=== PATIENT | female | born 2005 | race Hispanic/Latino ===

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

== ENCOUNTER 2024-04-28 12:26 | Emergency (ER) | payer SELFPAY ==
--- OUTSIDE RECORDS SUMMARY | 2024-04-28 12:30 | XMS REPORT | Continuity of Care Document ---
Author Name Unknown Address [address] [facility] [address] [place] [address] [facility] Address [address] [facility] [place] [address] Care Team Providers Care Workers Compensation Claims Adjuster Name Role Phone PCP, PATIENT DOES NOT HAVE A Primary Care Physic pinky Unavailable JOE SHELLEY Attending Clinician UnavailJOE Phillips Attending Clinician UnavailLing Landaverde Attending Clinician Unavailable Ling Steele Attending Clinician [phone] Patria Belcher Attending Clinician [phone] Unknown, Attending Attending Clinician Unavailab PATRIA Chauhan Attending Clinician Unavailable Doctor Unassigned, [place] Attending Clinician U Christianne Spivey MD Attending Clinician [phone] CHRISTIANNE YEH Attending Clinician Unavailable CHAYA MISTRY Attending Clinician UnavailChaya Montano Attending Clinician [phone] Nuria Naylor MD Attending Clinician [phone] NURIA NAYLOR Attending Clinician UnavailSTEPHEN Billings Attending Clinician Unavailable Nurse, [facility] Attending Clinician Un available Stephen Diallo MD Attending Clinician [phone] SINDHU ROBBINS Attending Clinician Unavailable PATRICK CELIS Attending Clinician Unavailable 2, [facility] Attending Clinician Unavailable Maria Eugenia Washington Attending Clinician [phone] TERE CLINTON Attending Clinician Unavailable Tere Clinton PA-C Attending Clinician [phone] Sindhu Robbins MD Attending Clinician [phone] Diabetes, [place] [facility] Endocrine Attending Cli evert Unavailable Qasim Amaya MD Attending Clinician [phone] QASIM AMAYA Attending Clinician Unavailable [facility] [phone] Only, [facility] Pednevin Bill Attending Clinician Unavaila Magy Naik Attending Clinician [phone] Gigi Ramos PA-C Attending Clinician [phone] MARIA EUGENIA IZQUIERDO Attending Clinician Unavailable Lucille Majano Attending Clinician [phone] JYOTI RAE Attending Clinician Unavailable Jyoti East Attending Clinician [phone] Judy Perdomo MD Attending Clinician [phone] Doyle Hamm Attending Clinician [phone] Ellen Baxter MD Attending Clinician [phone] Pob, [facility] Main Attending Clinician Unavailjosemanuel Miguel_P Attending Clinician Unavailable JUDY PERDOMO Attending Clinician Unavailable Visit, [facility] Nurse Attending Clinician Unavailable Blanca Castillo DO Attending Clinician [phone] Adelia Zarco MD Attending Clinician [phone] ELLEN BAXTER Attending Clinician Unavailable Ling BOYLE Admitting Clinician Unavailable Lamont_Scott Admitting Clinician Unavailable Payers Payer Name Policy Type Policy Number Effective Date Expirati on Date Source [facility] MEDICAID [id number] 2013 00:00:00 [facility] (MEDICAID REPLACEMENT - HMO) [id number] 2018 00:00:00 Problems Condition Name Condition Details Condition Category Status Onset Date Resolution Date Last Treatment Date Treating Clinician Comments Source Type 2 diabetes mellitus with other specified complicati on, without long-term current use of insulin Type 2 diabetes mellitus with other specified complicati on, without long-term current use of insulin Disease Active 2020-07 00:00: 00 [facility] Hypertrigl yceridemia without hyperchole sterolemia Hypertrigl yceridemia without hyperchole sterolemia Disease Active 2020-07 00:00: 00 [facility] Elevated liver function tests Elevated liver function tests Disease Active 2020-07 00:00: 00 [facility] Class 3 severe obesity with body mass index (BMI) of 45.0 to 49.9 in adult, unspecifie d obesity type, unspecifie d whether serious comorbidit y present Class 3 severe obesity with body mass index (BMI) of 45.0 to 49.9 in adult, unspecifie d obesity type, unspecifie d whether serious comorbidit y present Disease Active 2020-07 00:00: 00 Last Assessmen t & Plan: Formattin g of this note might be different from the original. Plan:Nutr itional/E xercise Counselin g and Education : - Counseled on diet, exercise, weight control and goals Ordered labs to screen for comorbidi ties.Disc ussed 5210 Every Day!5 or more fruits and vegetable s2 hours or less recreatio nal screen time. *Keep TV/Comput er out of the bedroom. No screen time under the age of 2.1 hour or more of physical activity0 sugary drinks, more water and low fat milk [facility] Elevated blood pressure reading Elevated blood pressure reading Disease Active 2020-07 00:00: 00 Last Assessmen t & Plan: Formattin g of this note might be different from the original. Mother states that they have a home blood pressure machine.S he will take some BP readings and will follow up in 2 weeks. [facility] Assistance needed with transporta tion Assistance needed with transporta tion Disease Active 2020-07 00:00: 00 Last Assessmen t & Plan: Formattin g of this note might be different from the original. Uncovered barriers to specialty appointme nts - lack of reliable transport ation.Ref erral to social work to assist. [facility] Musculoske letal back pain - left flank Musculoske letal back pain - left flank Disease Active 8-14 00:00: 00 Last Assessmen t & Plan: Formattin g of this note might be different from the original. 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 She has been off pain relieving medicatio ns for the past week. She has not been physicall y active and has been resting. She still has some mild pain with lateral flexion of the back. Normal neurologi c exam.Plan :Gave release for her to return to work.[employer] uraged her to resume activity slowly.Sh e did report that her boss is supportin g this plan.Revi ewed the importanc e of doing regular slow stretches of the back muscles. Before and after exercisin g or her shifts at work.Noti fy if the pain worsens. [facility] New onset of type 2 diabetes mellitus in pediatric patient New onset of type 2 diabetes mellitus in pediatric patient Disease Active 2-11 00:00: 00 Overview: Formattin g of this note might be different from the original. Hospital admission - [facility], 07/16 to 07/17/2020, started on insulinLa Assessmen t & Plan: Formattin g of this note might be different from the original. [facility] referral placed for Endocrino logy.Fadia ent is non compliant and her diabetes is not under good control. She had been treated with metformin but does not like taking pills - will not take the medicatio n.Needs to re-connec t with endocrino logy to get her diabetes under better control.L abs ordered. [facility] Elevated hemoglobin A1c Elevated hemoglobin A1c Disease Active 02-28 00:00: 00 [facility] Acanthosis nigricans Acanthosis nigricans Disease Active 04-04 00:00: 00 [facility] Anxiety Anxiety Disease Active 04-02 00:00: 00 [facility] Allergic rhinitis, unspecifie d seasonalit y, unspecifie d trigger Allergic rhinitis, unspecifie d seasonalit y, unspecifie d trigger Disease Active 04-02 00:00: 00 Last Assessmen t & Plan: Formattin g of this note might be different from the original. Recommend ed Flonase regularly for control of allergies . She does not want to take pills. [facility] Depression , unspecifie d depression type Depression , unspecifie d depression type Disease Active 04-02 00:00: 00 [facility] Failed vision screen Failed vision screen Disease Active 04-02 00:00: 00 [facility] Chlamydia Chlamydia Disease Active 04-02 00:00: 00 [facility] SSRI overdose, intentiona l self-harm, initial encounter SSRI overdose, intentiona l self-harm, initial encounter Disease Active 12-16 00:00: 00 Overview: Formattin g of this note might be different from the original. 06/2019: At age 11 yr. Doing better now. [facility] Allergies, Adverse Reactions, Alerts Allergy Name Allergy Type Status Severity Reaction(s) Onset Date Inactive Date Treating Clinician Comments Source NO KNOWN ALLERGIE S Drug Class Active [facility] Social History Social Habit Start Date Stop Date Quantity Comments Source History SDOH Alcohol Std Drinks [facility] History SDOH Alcohol Binge [facility] History SDOH Alcohol Comment [place] [facility] intake 2023-07-04 00:00:00 2023-07-04 00:00:00 Lifetime non-drinker (finding) [facility] Exposure to SARS-CoV-2 (event) 2022-09-13 00:00:00 2022-09-23 17:36:00 Not sure [facility] Tobacco use and exposure 2021-04-19 00:00:00 2021-04-19 00:00:00 Smokeless tobacco non-user [facility] History of Social function 2021-04-01 00:00:00 2021-04-01 00:00:00 [facility] History SDOH Alcohol Frequency 2019-03-08 00:00:00 2019-03-08 00:00:00 1 [facility] Sex Assigned At 2005 00:00:00 2005 00:00:00 [facility] Smoking Status Start Date Stop Date Source Never smoked tobacco [facility] Medications Ordered Medication Name Filled Medication Name Start Date Stop Date Current Medication? Ordering Clinician Indication Dosage Frequency Signature (SIG) Comments Components Source ibuprofen (IBU) tablet 600 mg 2022-07 06:00: 00 07-05 06:13 :00 No 600mg 600 mg, Oral, ONCE, 1 dose, On Tue07/05/23 at 0000, [facility] ibuprofen 600 mg tablet 2022-07 00:00: 00 Yes [id number] 600mg Take 1 tablet by mouth every 6 (six) hours as needed for Pain (scale 4-6). [facility] bromphenira mine-pseudo ephedrine-D M (BROMFED DM) 2-30-10 mg/5 mL syrup 2021-07 00:00: 00 Yes [id number] 5mL Take 5 mL by mouth 4 (four) times daily as needed for Congestion /Allergies . [facility] medroxyPROG ESTERone (DEPO-PROVE RA) syringe 150 mg 08-27 18:15: 00 08-27 17:11 :00 No [id number] 150[facility] ketoconazol e 2 % cream 2020-07 00:00: 00 Yes [id number] Apply to area(s) daily. [facility] Blood-Gluco se Meter (FREESTYLE LITE METER) Kit 2020-07 00:00: 00 Yes [id number] Use as directed [facility] blood sugar diagnostic (FREESTYLE LITE STRIPS) strip 2020-07 00:00: 00 Yes [id number] Check 3 times daily [facility] lancets (FREESTYLE LANCETS) 28 gauge Misc 2020-07 00:00: 00 Yes [id number] Checking sugars 3 times daily [facility] metFORMIN (RIOMET) 500 mg/5 mL solution 2020-07 00:00: 00 Yes [id number] 1000mg Take 10 mL by mouth 2 (two) times daily with meals. [facility] Blood-Gluco se Meter (FREESTYLE LITE METER) Kit 2020-07 00:00: 00 Yes [id number] Use as directed [facility] blood sugar diagnostic (FREESTYLE LITE STRIPS) strip 2020-07 00:00: 00 Yes [id number] Check 3 times daily [facility] fluticasone propionate 50 mcg/actuati on nasal spray,suspe nsion [place] 1 spray every day by intranasal route for 30 days. fluticasone propionate 50 mcg/actuati on nasal spray,suspe nsion [place] 1 spray every day by intranasal route for 30 days. No 1spray( s) Q1D fluticason e propionate 50 mcg/actuat ion nasal spray,susp ension [place] 1 spray every day by intranasal route for 30 days. [facility] Immunizations Ordered Immunization Name Filled Immunization Name Date Status Comments Source Meningococcal Polysaccharide (groups A, C, Y and W-135) conjugate vaccine (MCV4P) 2021-04-01 00:00:00 Completed [facility] Meningococcal B, OMV 2021-04-01 00:00:00 Completed [facility] Meningococcal Polysaccharide (groups A, C, Y and W-135) conjugate vaccine (MCV4P) 2021-04-01 00:00:00 Completed [facility] Meningococcal B, OMV 2021-04-01 00:00:00 Completed [facility] Meningococcal Polysaccharide (groups A, C, Y and W-135) conjugate vaccine (MCV4P) 2021-04-01 00:00:00 Completed [facility] Meningococcal B, OMV 2021-04-01 00:00:00 Completed [facility] Meningococcal Polysaccharide (groups A, C, Y and W-135) conjugate vaccine (MCV4P) 2021-04-01 00:00:00 Completed [facility] Meningococcal B, OMV 2021-04-01 00:00:00 Completed [facility] Meningococcal Polysaccharide (groups A, C, Y and W-135) conjugate vaccine (MCV4P) 2021-04-01 00:00:00 Completed [facility] Meningococcal B, OMV 2021-04-01 00:00:00 Completed [facility] Meningococcal Polysaccharide (groups A, C, Y and W-135) conjugate vaccine (MCV4P) 2021-04-01 00:00:00 Completed [facility] Meningococcal B, OMV 2021-04-01 00:00:00 Completed [facility] Meningococcal Polysaccharide (groups A, C, Y and W-135) conjugate vaccine (MCV4P) 2021-04-01 00:00:00 Completed [facility] Meningococcal B, OMV 2021-04-01 00:00:00 Completed [facility] Meningococcal Polysaccharide (groups A, C, Y and W-135) conjugate vaccine (MCV4P) 2021-04-01 00:00:00 Completed [facility] Meningococcal B, OMV 2021-04-01 00:00:00 Completed [facility] Meningococcal Polysaccharide (groups A, C, Y and W-135) conjugate vaccine (MCV4P) 2021-04-01 00:00:00 Completed [facility] Meningococcal B, OMV 2021-04-01 00:00:00 Completed [facility] Meningococcal Polysaccharide (groups A, C, Y and W-135) conjugate vaccine (MCV4P) 2021-04-01 00:00:00 Completed [facility] Meningococcal B, OMV 2021-04-01 00:00:00 Completed [facility] Meningococcal Polysaccharide (groups A, C, Y and W-135) conjugate vaccine (MCV4P) 2021-04-01 00:00:00 Completed [facility] Meningococcal B, OMV 2021-04-01 00:00:00 Completed [facility] Meningococcal Polysaccharide (groups A, C, Y and W-135) conjugate vaccine (MCV4P) 2021-04-01 00:00:00 Completed [facility] Meningococcal B, OMV 2021-04-01 00:00:00 Completed [facility] Influenza Virus Vaccine Quad .5 mL IM 6+ MO 2020-06-23 00:00:00 Completed [facility] Influenza Virus Vaccine Quad .5 mL IM 6+ MO 2020-06-23 00:00:00 Completed [facility] Influenza Virus Vaccine Quad .5 mL IM 6+ MO 2020-06-23 00:00:00 Completed [facility] Influenza Virus Vaccine Quad .5 mL IM 6+ MO 2020-06-23 00:00:00 Completed [facility] Influenza Virus Vaccine Quad .5 mL IM 6+ MO 2020-06-23 00:00:00 Completed [facility] Influenza Virus Vaccine Quad .5 mL IM 6+ MO 2020-06-23 00:00:00 Completed [facility] Influenza Virus Vaccine Quad .5 mL IM 6+ MO 2020-06-23 00:00:00 Completed [facility] Influenza Virus Vaccine Quad .5 mL IM 6+ MO 2020-06-23 00:00:00 Completed [facility] Influenza Virus Vaccine Quad .5 mL IM 6+ MO 2020-06-23 00:00:00 Completed [facility] Influenza Virus Vaccine Quad .5 mL IM 6+ MO 2020-06-23 00:00:00 Completed [facility] Influenza Virus Vaccine Quad .5 mL IM 6+ MO 2020-06-23 00:00:00 Completed [facility] Influenza Virus Vaccine Quad .5 mL IM 6+ MO 2020-06-23 00:00:00 Completed [facility] HPV9 2019-07-02 00:00:00 Completed [facility] HPV9 2019-07-02 00:00:00 Completed [facility] HPV9 2019-07-02 00:00:00 Completed [facility] HPV9 2019-07-02 00:00:00 Completed [facility] HPV9 2019-07-02 00:00:00 Completed [facility] HPV9 2019-07-02 00:00:00 Completed [facility] HPV9 2019-07-02 00:00:00 Completed [facility] HPV9 2019-07-02 00:00:00 Completed [facility] HPV9 2019-07-02 00:00:00 Completed [facility] HPV9 2019-07-02 00:00:00 Completed [facility] HPV9 2019-07-02 00:00:00 Completed [facility] HPV9 2019-07-02 00:00:00 Completed [facility] Meningococcal Polysaccharide (groups A, C, Y and W-135) conjugate vaccine (MCV4P) 2019-04-02 00:00:00 Completed [facility] TDAP 2019-04-02 00:00:00 Completed [facility] HPV9 2019-04-02 00:00:00 Completed [facility] Meningococcal Polysaccharide (groups A, C, Y and W-135) conjugate vaccine (MCV4P) 2019-04-02 00:00:00 Completed [facility] TDAP 2019-04-02 00:00:00 Completed [facility] HPV9 2019-04-02 00:00:00 Completed [facility] Meningococcal Polysaccharide (groups A, C, Y and W-135) conjugate vaccine (MCV4P) 2019-04-02 00:00:00 Completed [facility] TDAP 2019-04-02 00:00:00 Completed [facility] HPV9 2019-04-02 00:00:00 Completed [facility] Meningococcal Polysaccharide (groups A, C, Y and W-135) conjugate vaccine (MCV4P) 2019-04-02 00:00:00 Completed [facility] TDAP 2019-04-02 00:00:00 Completed [facility] HPV9 2019-04-02 00:00:00 Completed [facility] Meningococcal Polysaccharide (groups A, C, Y and W-135) conjugate vaccine (MCV4P) 2019-04-02 00:00:00 Completed [facility] TDAP 2019-04-02 00:00:00 Completed [facility] HPV9 2019-04-02 00:00:00 Completed [facility] Meningococcal Polysaccharide (groups A, C, Y and W-135) conjugate vaccine (MCV4P) 2019-04-02 00:00:00 Completed [facility] TDAP 2019-04-02 00:00:00 Completed [facility] HPV9 2019-04-02 00:00:00 Completed [facility] Meningococcal Polysaccharide (groups A, C, Y and W-135) conjugate vaccine (MCV4P) 2019-04-02 00:00:00 Completed [facility] TDAP 2019-04-02 00:00:00 Completed [facility] HPV9 2019-04-02 00:00:00 Completed [facility] Meningococcal Polysaccharide (groups A, C, Y and W-135) conjugate vaccine (MCV4P) 2019-04-02 00:00:00 Completed [facility] TDAP 2019-04-02 00:00:00 Completed [facility] HPV9 2019-04-02 00:00:00 Completed [facility] Meningococcal Polysaccharide (groups A, C, Y and W-135) conjugate vaccine (MCV4P) 2019-04-02 00:00:00 Completed [facility] TDAP 2019-04-02 00:00:00 Completed [facility] HPV9 2019-04-02 00:00:00 Completed [facility] Meningococcal Polysaccharide (groups A, C, Y and W-135) conjugate vaccine (MCV4P) 2019-04-02 00:00:00 Completed [facility] TDAP 2019-04-02 00:00:00 Completed [facility] HPV9 2019-04-02 00:00:00 Completed [facility] Meningococcal Polysaccharide (groups A, C, Y and W-135) conjugate vaccine (MCV4P) 2019-04-02 00:00:00 Completed [facility] TDAP 2019-04-02 00:00:00 Completed [facility] HPV9 2019-04-02 00:00:00 Completed [facility] Meningococcal Polysaccharide (groups A, C, Y and W-135) conjugate vaccine (MCV4P) 2019-04-02 00:00:00 Completed [facility] TDAP 2019-04-02 00:00:00 Completed [facility] HPV9 2019-04-02 00:00:00 Completed [facility] Influenza Virus Vaccine Quad IM 3+ YRS 2017-04-12 00:00:00 Completed [facility] Influenza Virus Vaccine Quad IM 3+ YRS 2017-04-12 00:00:00 Completed [facility] Influenza Virus Vaccine Quad IM 3+ YRS 2017-04-12 00:00:00 Completed [facility] Influenza Virus Vaccine Quad IM 3+ YRS 2017-04-12 00:00:00 Completed [facility] Influenza Virus Vaccine Quad IM 3+ YRS 2017-04-12 00:00:00 Completed [facility] Influenza Virus Vaccine Quad IM 3+ YRS 2017-04-12 00:00:00 Completed [facility] Influenza Virus Vaccine Quad IM 3+ YRS 2017-04-12 00:00:00 Completed [facility] Influenza Virus Vaccine Quad IM 3+ YRS 2017-04-12 00:00:00 Completed [facility] Influenza Virus Vaccine Quad IM 3+ YRS 2017-04-12 00:00:00 Completed [facility] Influenza Virus Vaccine Quad IM 3+ YRS 2017-04-12 00:00:00 Completed [facility] Influenza Virus Vaccine Quad IM 3+ YRS 2017-04-12 00:00:00 Completed [facility] Influenza Virus Vaccine Quad IM 3+ YRS 2017-04-12 00:00:00 Completed [facility] HPV9 2017-02-17 00:00:00 Completed [facility] HPV9 2017-02-17 00:00:00 Completed [facility] HPV9 2017-02-17 00:00:00 Completed [facility] HPV9 2017-02-17 00:00:00 Completed [facility] HPV9 2017-02-17 00:00:00 Completed [facility] HPV9 2017-02-17 00:00:00 Completed [facility] HPV9 2017-02-17 00:00:00 Completed [facility] HPV9 2017-02-17 00:00:00 Completed [facility] HPV9 2017-02-17 00:00:00 Completed [facility] HPV9 2017-02-17 00:00:00 Completed [facility] HPV9 2017-02-17 00:00:00 Completed [facility] HPV9 2017-02-17 00:00:00 Completed [facility] HPV9 2016-05-03 00:00:00 Completed [facility] Influenza Virus Vaccine Quad IM Multi-dose 6+ MO 2016-05-03 00:00:00 Completed [facility] Meningococcal Polysaccharide (groups A, C, Y and W-135) conjugate vaccine (MCV4P) 2016-05-03 00:00:00 Completed [facility] TDAP 2016-05-03 00:00:00 Completed [facility] HPV9 2016-05-03 00:00:00 Completed [facility] Influenza Virus Vaccine Quad IM Multi-dose 6+ MO 2016-05-03 00:00:00 Completed [facility] Meningococcal Polysaccharide (groups A, C, Y and W-135) conjugate vaccine (MCV4P) 2016-05-03 00:00:00 Completed [facility] TDAP 2016-05-03 00:00:00 Completed [facility] HPV9 2016-05-03 00:00:00 Completed [facility] Influenza Virus Vaccine Quad IM Multi-dose 6+ MO 2016-05-03 00:00:00 Completed [facility] Meningococcal Polysaccharide (groups A, C, Y and W-135) conjugate vaccine (MCV4P) 2016-05-03 00:00:00 Completed [facility] TDAP 2016-05-03 00:00:00 Completed [facility] HPV9 2016-05-03 00:00:00 Completed [facility] Influenza Virus Vaccine Quad IM Multi-dose 6+ MO 2016-05-03 00:00:00 Completed [facility] Meningococcal Polysaccharide (groups A, C, Y and W-135) conjugate vaccine (MCV4P) 2016-05-03 00:00:00 Completed [facility] TDAP 2016-05-03 00:00:00 Completed [facility] HPV9 2016-05-03 00:00:00 Completed [facility] Influenza Virus Vaccine Quad IM Multi-dose 6+ MO 2016-05-03 00:00:00 Completed [facility] Meningococcal Polysaccharide (groups A, C, Y and W-135) conjugate vaccine (MCV4P) 2016-05-03 00:00:00 Completed [facility] TDAP 2016-05-03 00:00:00 Completed [facility] HPV9 2016-05-03 00:00:00 Completed [facility] Influenza Virus Vaccine Quad IM Multi-dose 6+ MO 2016-05-03 00:00:00 Completed [facility] Meningococcal Polysaccharide (groups A, C, Y and W-135) conjugate vaccine (MCV4P) 2016-05-03 00:00:00 Completed [facility] TDAP 2016-05-03 00:00:00 Completed [facility] HPV9 2016-05-03 00:00:00 Completed [facility] Influenza Virus Vaccine Quad IM Multi-dose 6+ MO 2016-05-03 00:00:00 Completed [facility] Meningococcal Polysaccharide (groups A, C, Y and W-135) conjugate vaccine (MCV4P) 2016-05-03 00:00:00 Completed [facility] TDAP 2016-05-03 00:00:00 Completed [facility] HPV9 2016-05-03 00:00:00 Completed [facility] Influenza Virus Vaccine Quad IM Multi-dose 6+ MO 2016-05-03 00:00:00 Completed [facility] Meningococcal Polysaccharide (groups A, C, Y and W-135) conjugate vaccine (MCV4P) 2016-05-03 00:00:00 Completed [facility] TDAP 2016-05-03 00:00:00 Completed [facility] HPV9 2016-05-03 00:00:00 Completed [facility] Influenza Virus Vaccine Quad IM Multi-dose 6+ MO 2016-05-03 00:00:00 Completed [facility] Meningococcal Polysaccharide (groups A, C, Y and W-135) conjugate vaccine (MCV4P) 2016-05-03 00:00:00 Completed [facility] TDAP 2016-05-03 00:00:00 Completed [facility] HPV9 2016-05-03 00:00:00 Completed [facility] Influenza Virus Vaccine Quad IM Multi-dose 6+ MO 2016-05-03 00:00:00 Completed [facility] Meningococcal Polysaccharide (groups A, C, Y and W-135) conjugate vaccine (MCV4P) 2016-05-03 00:00:00 Completed [facility] TDAP 2016-05-03 00:00:00 Completed [facility] HPV9 2016-05-03 00:00:00 Completed [facility] Influenza Virus Vaccine Quad IM Multi-dose 6+ MO 2016-05-03 00:00:00 Completed [facility] Meningococcal Polysaccharide (groups A, C, Y and W-135) conjugate vaccine (MCV4P) 2016-05-03 00:00:00 Completed [facility] TDAP 2016-05-03 00:00:00 Completed [facility] HPV9 2016-05-03 00:00:00 Completed [facility] Influenza Virus Vaccine Quad IM Multi-dose 6+ MO 2016-05-03 00:00:00 Completed [facility] Meningococcal Polysaccharide (groups A, C, Y and W-135) conjugate vaccine (MCV4P) 2016-05-03 00:00:00 Completed [facility] TDAP 2016-05-03 00:00:00 Completed [facility] HEPATITIS A 2008-12-03 00:00:00 Completed [facility] HEPATITIS A 2008-12-03 00:00:00 Completed [facility] HEPATITIS A 2008-12-03 00:00:00 Completed [facility] HEPATITIS A 2008-12-03 00:00:00 Completed [facility] HEPATITIS A 2008-12-03 00:00:00 Completed [facility] HEPATITIS A 2008-12-03 00:00:00 Completed [facility] HEPATITIS A 2008-12-03 00:00:00 Completed [facility] HEPATITIS A 2008-12-03 00:00:00 Completed [facility] HEPATITIS A 2008-12-03 00:00:00 Completed [facility] HEPATITIS A 2008-12-03 00:00:00 Completed [facility] HEPATITIS A 2008-12-03 00:00:00 Completed [facility] HEPATITIS A 2008-12-03 00:00:00 Completed [facility] MMR 2008-03-02 00:00:00 Completed [facility] MMR 2008-03-02 00:00:00 Completed [facility] MMR 2008-03-02 00:00:00 Completed [facility] MMR 2008-03-02 00:00:00 Completed [facility] MMR 2008-03-02 00:00:00 Completed [facility] MMR 2008-03-02 00:00:00 Completed [facility] MMR 2008-03-02 00:00:00 Completed [facility] MMR 2008-03-02 00:00:00 Completed [facility] MMR 2008-03-02 00:00:00 Completed [facility] MMR 2008-03-02 00:00:00 Completed [facility] MMR 2008-03-02 00:00:00 Completed [facility] MMR 2008-03-02 00:00:00 Completed [facility] Varicella (varivax)(chicken pox) 2008-01-19 00:00:00 Completed [facility] HEPATITIS A 2008-01-19 00:00:00 Completed [facility] MMR 2008-01-19 00:00:00 Completed [facility] Polio (IPV/OPV) 2008-01-19 00:00:00 Completed [facility] DTAP 2008-01-19 00:00:00 Completed [facility] Pneumococcal 7 Conjugate, PCV7 (Prevnar7) 2008-01-19 00:00:00 Completed [facility] Varicella (varivax)(chicken pox) 2008-01-19 00:00:00 Completed [facility] HEPATITIS A 2008-01-19 00:00:00 Completed [facility] MMR 2008-01-19 00:00:00 Completed [facility] Polio (IPV/OPV) 2008-01-19 00:00:00 Completed [facility] DTAP 2008-01-19 00:00:00 Completed [facility] Pneumococcal 7 Conjugate, PCV7 (Prevnar7) 2008-01-19 00:00:00 Completed [facility] Varicella (varivax)(chicken pox) 2008-01-19 00:00:00 Completed [facility] HEPATITIS A 2008-01-19 00:00:00 Completed [facility] MMR 2008-01-19 00:00:00 Completed [facility] Polio (IPV/OPV) 2008-01-19 00:00:00 Completed [facility] DTAP 2008-01-19 00:00:00 Completed [facility] Pneumococcal 7 Conjugate, PCV7 (Prevnar7) 2008-01-19 00:00:00 Completed [facility] Varicella (varivax)(chicken pox) 2008-01-19 00:00:00 Completed [facility] HEPATITIS A 2008-01-19 00:00:00 Completed [facility] MMR 2008-01-19 00:00:00 Completed [facility] Polio (IPV/OPV) 2008-01-19 00:00:00 Completed [facility] DTAP 2008-01-19 00:00:00 Completed [facility] Pneumococcal 7 Conjugate, PCV7 (Prevnar7) 2008-01-19 00:00:00 Completed [facility] Varicella (varivax)(chicken pox) 2008-01-19 00:00:00 Completed [facility] HEPATITIS A 2008-01-19 00:00:00 Completed [facility] MMR 2008-01-19 00:00:00 Completed [facility] Polio (IPV/OPV) 2008-01-19 00:00:00 Completed [facility] DTAP 2008-01-19 00:00:00 Completed [facility] Pneumococcal 7 Conjugate, PCV7 (Prevnar7) 2008-01-19 00:00:00 Completed [facility] Varicella (varivax)(chicken pox) 2008-01-19 00:00:00 Completed [facility] HEPATITIS A 2008-01-19 00:00:00 Completed [facility] MMR 2008-01-19 00:00:00 Completed [facility] Polio (IPV/OPV) 2008-01-19 00:00:00 Completed [facility] DTAP 2008-01-19 00:00:00 Completed [facility] Pneumococcal 7 Conjugate, PCV7 (Prevnar7) 2008-01-19 00:00:00 Completed [facility] Varicella (varivax)(chicken pox) 2008-01-19 00:00:00 Completed [facility] HEPATITIS A 2008-01-19 00:00:00 Completed [facility] MMR 2008-01-19 00:00:00 Completed [facility] Polio (IPV/OPV) 2008-01-19 00:00:00 Completed [facility] DTAP 2008-01-19 00:00:00 Completed [facility] Pneumococcal 7 Conjugate, PCV7 (Prevnar7) 2008-01-19 00:00:00 Completed [facility] Varicella (varivax)(chicken pox) 2008-01-19 00:00:00 Completed [facility] HEPATITIS A 2008-01-19 00:00:00 Completed [facility] MMR 2008-01-19 00:00:00 Completed [facility] Polio (IPV/OPV) 2008-01-19 00:00:00 Completed [facility] DTAP 2008-01-19 00:00:00 Completed [facility] Pneumococcal 7 Conjugate, PCV7 (Prevnar7) 2008-01-19 00:00:00 Completed [facility] Varicella (varivax)(chicken pox) 2008-01-19 00:00:00 Completed [facility] HEPATITIS A 2008-01-19 00:00:00 Completed [facility] MMR 2008-01-19 00:00:00 Completed [facility] Polio (IPV/OPV) 2008-01-19 00:00:00 Completed [facility] DTAP 2008-01-19 00:00:00 Completed [facility] Pneumococcal 7 Conjugate, PCV7 (Prevnar7) 2008-01-19 00:00:00 Completed [facility] Varicella (varivax)(chicken pox) 2008-01-19 00:00:00 Completed [facility] HEPATITIS A 2008-01-19 00:00:00 Completed [facility] MMR 2008-01-19 00:00:00 Completed [facility] Polio (IPV/OPV) 2008-01-19 00:00:00 Completed [facility] DTAP 2008-01-19 00:00:00 Completed [facility] Pneumococcal 7 Conjugate, PCV7 (Prevnar7) 2008-01-19 00:00:00 Completed [facility] Varicella (varivax)(chicken pox) 2008-01-19 00:00:00 Completed [facility] HEPATITIS A 2008-01-19 00:00:00 Completed [facility] MMR 2008-01-19 00:00:00 Completed [facility] Polio (IPV/OPV) 2008-01-19 00:00:00 Completed [facility] DTAP 2008-01-19 00:00:00 Completed [facility] Pneumococcal 7 Conjugate, PCV7 (Prevnar7) 2008-01-19 00:00:00 Completed [facility] Varicella (varivax)(chicken pox) 2008-01-19 00:00:00 Completed [facility] HEPATITIS A 2008-01-19 00:00:00 Completed [facility] MMR 2008-01-19 00:00:00 Completed [facility] Polio (IPV/OPV) 2008-01-19 00:00:00 Completed [facility] DTAP 2008-01-19 00:00:00 Completed [facility] Pneumococcal 7 Conjugate, PCV7 (Prevnar7) 2008-01-19 00:00:00 Completed [facility] Varicella (varivax)(chicken pox) 2005-03-02 00:00:00 Completed [facility] MMR 2005-03-02 00:00:00 Completed [facility] Heamophilus Influenza B 2005-03-02 00:00:00 Completed [facility] Varicella (varivax)(chicken pox) 2005-03-02 00:00:00 Completed [facility] MMR 2005-03-02 00:00:00 Completed [facility] Heamophilus Influenza B 2005-03-02 00:00:00 Completed [facility] Varicella (varivax)(chicken pox) 2005-03-02 00:00:00 Completed [facility] MMR 2005-03-02 00:00:00 Completed [facility] Heamophilus Influenza B 2005-03-02 00:00:00 Completed [facility] Varicella (varivax)(chicken pox) 2005-03-02 00:00:00 Completed [facility] MMR 2005-03-02 00:00:00 Completed [facility] Heamophilus Influenza B 2005-03-02 00:00:00 Completed [facility] Varicella (varivax)(chicken pox) 2005-03-02 00:00:00 Completed [facility] MMR 2005-03-02 00:00:00 Completed [facility] Heamophilus Influenza B 2005-03-02 00:00:00 Completed [facility] Varicella (varivax)(chicken pox) 2005-03-02 00:00:00 Completed [facility] MMR 2005-03-02 00:00:00 Completed [facility] Heamophilus Influenza B 2005-03-02 00:00:00 Completed [facility] Varicella (varivax)(chicken pox) 2005-03-02 00:00:00 Completed [facility] MMR 2005-03-02 00:00:00 Completed [facility] Heamophilus Influenza B 2005-03-02 00:00:00 Completed [facility] Varicella (varivax)(chicken pox) 2005-03-02 00:00:00 Completed [facility] MMR 2005-03-02 00:00:00 Completed [facility] Heamophilus Influenza B 2005-03-02 00:00:00 Completed [facility] Varicella (varivax)(chicken pox) 2005-03-02 00:00:00 Completed [facility] MMR 2005-03-02 00:00:00 Completed [facility] Heamophilus Influenza B 2005-03-02 00:00:00 Completed [facility] Varicella (varivax)(chicken pox) 2005-03-02 00:00:00 Completed [facility] MMR 2005-03-02 00:00:00 Completed [facility] Heamophilus Influenza B 2005-03-02 00:00:00 Completed [facility] Varicella (varivax)(chicken pox) 2005-03-02 00:00:00 Completed [facility] MMR 2005-03-02 00:00:00 Completed [facility] Heamophilus Influenza B 2005-03-02 00:00:00 Completed [facility] Varicella (varivax)(chicken pox) 2005-03-02 00:00:00 Completed [facility] MMR 2005-03-02 00:00:00 Completed [facility] Heamophilus Influenza B 2005-03-02 00:00:00 Completed [facility] Pediarix (dtap/hep B/ipv) 2004-06-23 00:00:00 Completed [facility] Heamophilus Influenza B 2004-06-23 00:00:00 Completed [facility] Pneumococcal 7 Conjugate, PCV7 (Prevnar7) 2004-06-23 00:00:00 Completed [facility] Pediarix (dtap/hep B/ipv) 2004-06-23 00:00:00 Completed [facility] Heamophilus Influenza B 2004-06-23 00:00:00 Completed [facility] Pneumococcal 7 Conjugate, PCV7 (Prevnar7) 2004-06-23 00:00:00 Completed [facility] Pediarix (dtap/hep B/ipv) 2004-06-23 00:00:00 Completed [facility] Heamophilus Influenza B 2004-06-23 00:00:00 Completed [facility] Pneumococcal 7 Conjugate, PCV7 (Prevnar7) 2004-06-23 00:00:00 Completed [facility] Pediarix (dtap/hep B/ipv) 2004-06-23 00:00:00 Completed [facility] Heamophilus Influenza B 2004-06-23 00:00:00 Completed [facility] Pneumococcal 7 Conjugate, PCV7 (Prevnar7) 2004-06-23 00:00:00 Completed [facility] Pediarix (dtap/hep B/ipv) 2004-06-23 00:00:00 Completed [facility] Heamophilus Influenza B 2004-06-23 00:00:00 Completed [facility] Pneumococcal 7 Conjugate, PCV7 (Prevnar7) 2004-06-23 00:00:00 Completed [facility] Pediarix (dtap/hep B/ipv) 2004-06-23 00:00:00 Completed [facility] Heamophilus Influenza B 2004-06-23 00:00:00 Completed [facility] Pneumococcal 7 Conjugate, PCV7 (Prevnar7) 2004-06-23 00:00:00 Completed [facility] Pediarix (dtap/hep B/ipv) 2004-06-23 00:00:00 Completed [facility] Heamophilus Influenza B 2004-06-23 00:00:00 Completed [facility] Pneumococcal 7 Conjugate, PCV7 (Prevnar7) 2004-06-23 00:00:00 Completed [facility] Pediarix (dtap/hep B/ipv) 2004-06-23 00:00:00 Completed [facility] Heamophilus Influenza B 2004-06-23 00:00:00 Completed [facility] Pneumococcal 7 Conjugate, PCV7 (Prevnar7) 2004-06-23 00:00:00 Completed [facility] Pediarix (dtap/hep B/ipv) 2004-06-23 00:00:00 Completed [facility] Heamophilus Influenza B 2004-06-23 00:00:00 Completed [facility] Pneumococcal 7 Conjugate, PCV7 (Prevnar7) 2004-06-23 00:00:00 Completed [facility] Pediarix (dtap/hep B/ipv) 2004-06-23 00:00:00 Completed [facility] Heamophilus Influenza B 2004-06-23 00:00:00 Completed [facility] Pneumococcal 7 Conjugate, PCV7 (Prevnar7) 2004-06-23 00:00:00 Completed [facility] Pediarix (dtap/hep B/ipv) 2004-06-23 00:00:00 Completed [facility] Heamophilus Influenza B 2004-06-23 00:00:00 Completed [facility] Pneumococcal 7 Conjugate, PCV7 (Prevnar7) 2004-06-23 00:00:00 Completed [facility] Pediarix (dtap/hep B/ipv) 2004-06-23 00:00:00 Completed [facility] Heamophilus Influenza B 2004-06-23 00:00:00 Completed [facility] Pneumococcal 7 Conjugate, PCV7 (Prevnar7) 2004-06-23 00:00:00 Completed [facility] Pediarix (dtap/hep B/ipv) 2004-04-23 00:00:00 Completed [facility] Heamophilus Influenza B 2004-04-23 00:00:00 Completed [facility] Pneumococcal 7 Conjugate, PCV7 (Prevnar7) 2004-04-23 00:00:00 Completed [facility] Pediarix (dtap/hep B/ipv) 2004-04-23 00:00:00 Completed [facility] Heamophilus Influenza B 2004-04-23 00:00:00 Completed [facility] Pneumococcal 7 Conjugate, PCV7 (Prevnar7) 2004-04-23 00:00:00 Completed [facility] Pediarix (dtap/hep B/ipv) 2004-04-23 00:00:00 Completed [facility] Heamophilus Influenza B 2004-04-23 00:00:00 Completed [facility] Pneumococcal 7 Conjugate, PCV7 (Prevnar7) 2004-04-23 00:00:00 Completed [facility] Pediarix (dtap/hep B/ipv) 2004-04-23 00:00:00 Completed [facility] Heamophilus Influenza B 2004-04-23 00:00:00 Completed [facility] Pneumococcal 7 Conjugate, PCV7 (Prevnar7) 2004-04-23 00:00:00 Completed [facility] Pediarix (dtap/hep B/ipv) 2004-04-23 00:00:00 Completed [facility] Heamophilus Influenza B 2004-04-23 00:00:00 Completed [facility] Pneumococcal 7 Conjugate, PCV7 (Prevnar7) 2004-04-23 00:00:00 Completed [facility] Pediarix (dtap/hep B/ipv) 2004-04-23 00:00:00 Completed [facility] Heamophilus Influenza B 2004-04-23 00:00:00 Completed [facility] Pneumococcal 7 Conjugate, PCV7 (Prevnar7) 2004-04-23 00:00:00 Completed [facility] Pediarix (dtap/hep B/ipv) 2004-04-23 00:00:00 Completed [facility] Heamophilus Influenza B 2004-04-23 00:00:00 Completed [facility] Pneumococcal 7 Conjugate, PCV7 (Prevnar7) 2004-04-23 00:00:00 Completed [facility] Pediarix (dtap/hep B/ipv) 2004-04-23 00:00:00 Completed [facility] Heamophilus Influenza B 2004-04-23 00:00:00 Completed [facility] Pneumococcal 7 Conjugate, PCV7 (Prevnar7) 2004-04-23 00:00:00 Completed [facility] Pediarix (dtap/hep B/ipv) 2004-04-23 00:00:00 Completed [facility] Heamophilus Influenza B 2004-04-23 00:00:00 Completed [facility] Pneumococcal 7 Conjugate, PCV7 (Prevnar7) 2004-04-23 00:00:00 Completed [facility] Pediarix (dtap/hep B/ipv) 2004-04-23 00:00:00 Completed [facility] Heamophilus Influenza B 2004-04-23 00:00:00 Completed [facility] Pneumococcal 7 Conjugate, PCV7 (Prevnar7) 2004-04-23 00:00:00 Completed [facility] Pediarix (dtap/hep B/ipv) 2004-04-23 00:00:00 Completed [facility] Heamophilus Influenza B 2004-04-23 00:00:00 Completed [facility] Pneumococcal 7 Conjugate, PCV7 (Prevnar7) 2004-04-23 00:00:00 Completed [facility] Pediarix (dtap/hep B/ipv) 2004-04-23 00:00:00 Completed [facility] Heamophilus Influenza B 2004-04-23 00:00:00 Completed [facility] Pneumococcal 7 Conjugate, PCV7 (Prevnar7) 2004-04-23 00:00:00 Completed [facility] Pediarix (dtap/hep B/ipv) 2004-03-23 00:00:00 Completed [facility] Heamophilus Influenza B 2004-03-23 00:00:00 Completed [facility] Pneumococcal 7 Conjugate, PCV7 (Prevnar7) 2004-03-23 00:00:00 Completed [facility] Pediarix (dtap/hep B/ipv) 2004-03-23 00:00:00 Completed [facility] Heamophilus Influenza B 2004-03-23 00:00:00 Completed [facility] Pneumococcal 7 Conjugate, PCV7 (Prevnar7) 2004-03-23 00:00:00 Completed [facility] Pediarix (dtap/hep B/ipv) 2004-03-23 00:00:00 Completed [facility] Heamophilus Influenza B 2004-03-23 00:00:00 Completed [facility] Pneumococcal 7 Conjugate, PCV7 (Prevnar7) 2004-03-23 00:00:00 Completed [facility] Pediarix (dtap/hep B/ipv) 2004-03-23 00:00:00 Completed [facility] Heamophilus Influenza B 2004-03-23 00:00:00 Completed [facility] Pneumococcal 7 Conjugate, PCV7 (Prevnar7) 2004-03-23 00:00:00 Completed [facility] Pediarix (dtap/hep B/ipv) 2004-03-23 00:00:00 Completed [facility] Heamophilus Influenza B 2004-03-23 00:00:00 Completed [facility] Pneumococcal 7 Conjugate, PCV7 (Prevnar7) 2004-03-23 00:00:00 Completed [facility] Pediarix (dtap/hep B/ipv) 2004-03-23 00:00:00 Completed [facility] Heamophilus Influenza B 2004-03-23 00:00:00 Completed [facility] Pneumococcal 7 Conjugate, PCV7 (Prevnar7) 2004-03-23 00:00:00 Completed [facility] Pediarix (dtap/hep B/ipv) 2004-03-23 00:00:00 Completed [facility] Heamophilus Influenza B 2004-03-23 00:00:00 Completed [facility] Pneumococcal 7 Conjugate, PCV7 (Prevnar7) 2004-03-23 00:00:00 Completed [facility] Pediarix (dtap/hep B/ipv) 2004-03-23 00:00:00 Completed [facility] Heamophilus Influenza B 2004-03-23 00:00:00 Completed [facility] Pneumococcal 7 Conjugate, PCV7 (Prevnar7) 2004-03-23 00:00:00 Completed [facility] Pediarix (dtap/hep B/ipv) 2004-03-23 00:00:00 Completed [facility] Heamophilus Influenza B 2004-03-23 00:00:00 Completed [facility] Pneumococcal 7 Conjugate, PCV7 (Prevnar7) 2004-03-23 00:00:00 Completed [facility] Pediarix (dtap/hep B/ipv) 2004-03-23 00:00:00 Completed [facility] Heamophilus Influenza B 2004-03-23 00:00:00 Completed [facility] Pneumococcal 7 Conjugate, PCV7 (Prevnar7) 2004-03-23 00:00:00 Completed [facility] Pediarix (dtap/hep B/ipv) 2004-03-23 00:00:00 Completed [facility] Heamophilus Influenza B 2004-03-23 00:00:00 Completed [facility] Pneumococcal 7 Conjugate, PCV7 (Prevnar7) 2004-03-23 00:00:00 Completed [facility] Pediarix (dtap/hep B/ipv) 2004-03-23 00:00:00 Completed [facility] Heamophilus Influenza B 2004-03-23 00:00:00 Completed [facility] Pneumococcal 7 Conjugate, PCV7 (Prevnar7) 2004-03-23 00:00:00 Completed [facility] Hep B, Adol or Pedi Dosage 2003 00:00:00 Completed [facility] Hep B, Adol or Pedi Dosage 2003 00:00:00 Completed [facility] Hep B, Adol or Pedi Dosage 2003 00:00:00 Completed [facility] Hep B, Adol or Pedi Dosage 2003 00:00:00 Completed [facility] Hep B, Adol or Pedi Dosage 2003 00:00:00 Completed [facility] Hep B, Adol or Pedi Dosage 2003 00:00:00 Completed [facility] Hep B, Adol or Pedi Dosage 2003 00:00:00 Completed [facility] Hep B, Adol or Pedi Dosage 2003 00:00:00 Completed [facility] Hep B, Adol or Pedi Dosage 2003 00:00:00 Completed [facility] Hep B, Adol or Pedi Dosage 2003 00:00:00 Completed [facility] Hep B, Adol or Pedi Dosage 2003 00:00:00 Completed [facility] Hep B, Adol or Pedi Dosage 2003 00:00:00 Completed [facility] Meningococcal Polysaccharide (groups A, C, Y and W-135) conjugate vaccine (MCV4P) Unknown Completed [facility] TDAP Unknown Completed [facility] HPV9 Unknown Completed [facility] Varicella (varivax)(chicken pox) Unknown Completed [facility] HEPATITIS A Unknown Completed [facility] MMR Unknown Completed [facility] Pediarix (dtap/hep B/ipv) Unknown Completed [facility] Hep B, Adol or Pedi Dosage Unknown Completed [facility] Polio (IPV/OPV) Unknown Completed [facility] DTAP Unknown Completed [facility] Influenza Virus Vaccine Quad IM 3+ YRS Unknown Completed [facility] Heamophilus Influenza B Unknown Completed [facility] Influenza Virus Vaccine Quad IM Multi-dose 6+ MO Unknown Completed [facility] Pneumococcal 7 Conjugate, PCV7 (Prevnar7) Unknown Completed [facility] Meningococcal B, OMV Unknown Completed [facility] Vital Signs Vital Name Observation Time Observation Value Comments Susan denis Systolic blood pressure 2023-07-05 05:39:00 150 mm[Hg] [facility] Diastolic blood pressure 2023-07-05 05:39:00 105 mm[Hg] [facility] Heart rate 2023-07-05 05:39:00 120 /min [facility] Body temperature 2023-07-05 05:39:00 36.78 Yanira [facility] Respiratory rate 2023-07-05 05:39:00 20 /min [facility] Body height 2023-07-05 05:39:00 154.9 cm [facility] Body weight 2023-07-05 05:39:00 114.76 kg [facility] BMI 2023-07-05 05:39:00 47.80 kg/m2 [facility] Oxygen saturation in Arterial blood by Pulse oximetry 2023-07-05 05:39:00 100 /min [facility] Systolic blood pressure 2022-09-23 22:40:00 123 mm[Hg] [facility] Diastolic blood pressure 2022-09-23 22:40:00 73 mm[Hg] [facility] Heart rate 2022-09-23 22:40:00 71 /min [facility] Body temperature 2022-09-23 22:40:00 36.78 Yanira [facility] Respiratory rate 2022-09-23 22:40:00 16 /min [facility] Body height 2022-09-23 22:40:00 154.9 cm [facility] Body weight 2022-09-23 22:40:00 113.399 kg [facility] BMI 2022-09-23 22:40:00 47.24 kg/m2 [facility] Body mass index (BMI) [Percentile] Per age and sex 2022-09-23 22:40:00 99.24 % [facility] Oxygen saturation in Arterial blood by Pulse oximetry 2022-09-23 22:40:00 98 /min [facility] Systolic blood pressure 2022-06-07 22:49:00 113 mm[Hg] [facility] Diastolic blood pressure 2022-06-07 22:49:00 73 mm[Hg] [facility] Heart rate 2022-06-07 22:49:00 80 /min [facility] Body temperature 2022-06-07 22:49:00 37.17 Yanira [facility] Respiratory rate 2022-06-07 22:49:00 18 /min [facility] Body height 2022-06-07 22:49:00 154.9 cm [facility] Body weight 2022-06-07 22:49:00 113.399 kg [facility] BMI 2022-06-07 22:49:00 47.24 kg/m2 [facility] Body mass index (BMI) [Percentile] Per age and sex 2022-06-07 22:49:00 99.28 % [facility] Oxygen saturation in Arterial blood by Pulse oximetry 2022-06-07 22:49:00 97 /min [facility] Systolic blood pressure 2022-05-13 00:28:00 119 mm[Hg] [facility] Diastolic blood pressure 2022-05-13 00:28:00 68 mm[Hg] [facility] Heart rate 2022-05-13 00:28:00 76 /min [facility] Body temperature 2022-05-13 00:28:00 36.72 Yanira [facility] Respiratory rate 2022-05-13 00:28:00 18 /min [facility] Body height 2022-05-13 00:28:00 154.9 cm [facility] Body weight 2022-05-13 00:28:00 114.352 kg [facility] BMI 2022-05-13 00:28:00 47.63 kg/m2 [facility] Body mass index (BMI) [Percentile] Per age and sex 2022-05-13 00:28:00 99.31 % [facility] Oxygen saturation in Arterial blood by Pulse oximetry 2022-05-13 00:28:00 98 /min [facility] Systolic blood pressure 2021-08-27 17:09:00 139 mm[Hg] [facility] Diastolic blood pressure 2021-08-27 17:09:00 93 mm[Hg] [facility] Heart rate 2021-08-27 17:08:00 82 /min [facility] Body temperature 2021-08-27 17:08:00 37.06 Yanira [facility] Body height 2021-08-27 17:08:00 154.9 cm [facility] Body weight 2021-08-27 17:08:00 113.399 kg [facility] BMI 2021-08-27 17:08:00 47.24 kg/m2 [facility] Body mass index (BMI) [Percentile] Per age and sex 2021-08-27 17:08:00 99.39 % [facility] Systolic blood pressure 2021-08-10 16:18:00 128 mm[Hg] [facility] Diastolic blood pressure 2021-08-10 16:18:00 80 mm[Hg] [facility] Heart rate 2021-08-10 16:18:00 88 /min [facility] Body temperature 2021-08-10 16:18:00 36.39 Yanira [facility] Respiratory rate 2021-08-10 16:18:00 18 /min [facility] Body weight 2021-08-10 16:18:00 113.762 kg [facility] Oxygen saturation in Arterial blood by Pulse oximetry 2021-08-10 16:18:00 95 /min [facility] BP Diastolic 2018-09-29 00:00:00 68 mm[Hg] [facility] Height 2018-09-29 00:00:00 63 [in_i] [facility] BMI (Body Mass Index) 2018-09-29 00:00:00 50.6 kg/m2 [facility] BP Systolic 2018-09-29 00:00:00 105 mm[Hg] [facility] Body Weight 2018-09-29 00:00:00 285.8 [lb_av] [facility] Procedures Procedure Date / Time Performed Performing Clinician Source ASSIGNMENT OF BENEFITS 2023-07-05 06:03:22 Docto r Unassigned, [place] [facility] NOTICE OF PRIVACY PRACTICES 2023-07-05 05:29:30 Doctor Unassigned, [place] [facility] CONSENT/REFUSAL FOR DIAGNOSIS AND TREATMENT 2023-07-05 05:28:25 Doctor Unassigned, [place] [facility] PATIENT FINANCIAL POLICY 2022-09-23 22:38:13 Doctor Unassigned, [place] [facility] POCT MOLECULAR FLU 2022-06-07 22:59:00 Unknown, Attend ing [facility] POCT MOLECULAR STREP 2022-06-07 22:58:00 Unknown, Atte kulwant [facility] ASSIGNMENT OF BENEFITS 2022-06-07 22:21:05 Docto r Unassigned, [place] [facility] XR FOOT 3+ VW LEFT 2022-05-13 00:50:25 Elizabeth Mistry [facility] TYMPANOMETRY 2018-09-29 00:00:00 [facility] Plan of Care Planned Activity Planned Date Details Comments Source Instructions [facility] Encounters Start Date/Time End Date/Time Encounter Type Admission Type Attending Clinicians Care Facility Care Department Encounter ID Source 2021-05-11 11:51:44 Emergency [facility] [id number] [facility] 2021-05-10 17:53:48 Emergency [facility] [id number] [facility] 2021-05-09 02:17:49 Emergency [facility] [id number] [facility] 2023-07-22 09:00:00 2023-07-22 09:00:00 Outpatient JOE JONES CRAIG [facility] [id number] [facility] 2023-07-04 23:41:00 2023-07-05 01:58:00 Emergency X Ling BOYLE [facility] ERT [id number] [facility] 2023-07-04 23:41:00 2023-07-05 01:58:00 Emergency Eugene, K Cary [facility] 1.2840.114 350.1.13.10 4.2.7.2.686 [id number] [facility] 2022-09-23 17:40:00 2022-09-23 18:00:00 Urgent Care Patria Andrade Unknown, Attending [facility] 1.2840.114 350.1.13.10 4.2.7.2.686 [id number] [facility] 2022-09-23 17:40:00 2022-09-23 17:40:00 Outpatient R PATRIA ANDRADE [facility] [id number] [facility] 2022-09-23 00:00:00 2022-09-23 00:00:00 Orders Only Doctor Unassigned, [place] [facility] 1.2840.114 350.1.13.10 4.2.7.2.686 [id number] [facility] 2022-09-23 00:00:00 2022-09-23 00:00:00 Letter (Out) Patria [facility] 1.2.840.114 350.1.13.10 4.2.7.2.686 [id number] [facility] 2022-06-10 00:00:00 2022-06-10 00:00:00 Telephone Christianne Yeh [facility] 1.2.840.114 350.1.13.10 4.2.7.2.686 [id number] [facility] 2022-06-07 16:20:00 2022-06-07 17:18:32 Outpatient R CHRISTIANNE YEH [facility] [id number] [facility] 2022-06-07 16:20:00 2022-06-07 17:18:32 Urgent Care Christianne Yeh Unknown, Attending [facility] 1.2.840.114 350.1.13.10 4.2.7.2.686 [id number] [facility] 2022-06-07 00:00:00 2022-06-07 00:00:00 Orders Only Doctor Unassigned, [place] [facility] 1.284.114 350.1.13.10 4.2.7.2.686 [id number] [facility] 2022-05-12 19:42:40 2022-05-12 23:59:00 Outpatient R CHAYA MISTRY [facility] [id number] [facility] 2022-05-12 19:42:40 2022-05-12 23:59:00 Hospital Encounter Sandra Mistrytany [facility] 1.2.840.114 350.1.13.10 4.2.7.2.686 [id number] [facility] 2022-05-12 19:20:00 2022-05-12 19:40:00 Urgent Care Chaya Mistry Unknown, Attending [facility] 1.2.840.114 350.1.13.10 4.2.7.2.686 [id number] [facility] 2022-05-12 00:00:00 2022-05-12 00:00:00 Letter (Out) Sandra Mistrytany [facility] 1.2.840.114 350.1.13.10 4.2.7.2.686 [id number] [facility] 2021-11-24 10:30:00 2021-11-24 10:30:00 Outpatient R [facility] [id number] [facility] 2021-11-20 10:30:00 2021-11-20 10:30:00 Outpatient R [facility] [id number] [facility] 2021-11-18 00:00:00 2021-11-18 00:00:00 [facility] 1.2.840.114 350.1.13.10 4.2.7.2.686 [id number] [facility] [id number] [facility] 2021-09-14 11:30:00 2021-09-14 11:30:00 Outpatient R NURIA NAYLOR [facility] [id number] [facility] 2021-08-27 10:30:00 2021-08-27 11:10:02 Outpatient STEPHEN JOY [facility] [id number] [facility] 2021-08-27 10:30:00 2021-08-27 11:10:02 Nurse Visit Nurse, [facility] Stephen Diallo [facility] 1.2.840.114 350.1.13.10 4.2.7.2.686 [id number] [facility] 2021-08-25 14:30:00 2021-08-25 14:30:00 Outpatient SINDHU MCKEON [facility] [id number] [facility] 2021-08-17 08:00:00 2021-08-17 08:00:00 Outpatient PATRICK HEBERT [facility] [id number] [facility] 2021-08-17 08:00:00 2021-08-17 08:00:00 Outpatient PATRICK HEBERT [facility] [id number] [facility] 2021-08-13 10:00:00 2021-08-13 10:00:00 Outpatient SINDHU MCKEON [facility] [id number] [facility] 2021-08-13 10:00:00 2021-08-13 10:00:00 Outpatient R SINDHU ROBBINS [facility] [id number] [facility] 2021-08-10 11:45:00 2021-08-10 12:00:00 Greenhouse Manager Visit 2, [facility] Maria Eugenia Singleton Elizabeth A [facility] 1.2.840.114 350.1.13.10 4.2.7.2.686 [id number] [facility] 2021-08-10 10:00:00 2021-08-10 11:23:55 Outpatient NURIA MONTALVO [facility] [id number] [facility] 2021-08-10 10:00:00 2021-08-10 11:23:55 Office Visit Nuria Naylor [facility] 1.2.840.114 350.1.13.10 4.2.7.2.686 [id number] [facility] 2021-08-10 00:00:00 2021-08-10 00:00:00 Orders Only Doctor Unassigned, [place] [facility] 1.2.840.114 350.1.13.10 4.2.7.2.686 [id number] [facility] 2021-07-28 13:20:00 2021-07-28 13:20:00 Outpatient NURIA MONTALVO [facility] [id number] [facility] 2021-06-16 11:00:00 2021-06-16 11:00:00 Outpatient SINDHU MCKEON [facility] [id number] [facility] 2021-05-27 13:30:00 2021-05-27 14:22:29 Outpatient R TERE CLINTON [facility] [id number] [facility] 2021-05-27 13:26:52 2021-05-27 14:22:29 Office Visit Tere Clinton [facility] 1.2840.114 350.1.13.10 4.2.7.2.686 [id number] [facility] 2021-05-27 13:30:00 2021-05-27 13:30:00 Outpatient Amada CLINTON [facility] [id number] [facility] 2021-05-27 13:30:00 2021-05-27 13:30:00 Outpatient Amada CLINTON [facility] [id number] [facility] 2021-05-27 00:00:00 2021-05-27 00:00:00 Orders Only Doctor Unassigned, [place] [facility] 1.2840.114 350.1.13.10 4.2.7.2.686 [id number] [facility] 2021-05-18 00:00:00 2021-05-18 00:00:00 [facility] 1.2.840.114 350.1.13.10 4.2.7.2.686 [id number] [facility] 2021-05-12 10:15:24 2021-05-12 10:45:24 Office Visit Diabetes, [place] [facility] Pedi Endocrine Qasim Amaya [facility] 1.2840.114 350.1.13.10 4.2.7.2.686 [id number] [facility] 2021-05-12 10:30:00 2021-05-12 10:30:00 Outpatient QASIM ECHEVERRIA [facility] [id number] [facility] 2021-05-12 00:00:00 2021-05-12 00:00:00 [facility] 1.2840.114 350.1.13.10 4.2.7.2.686 [id number] [facility] 2021-04-28 13:00:00 2021-04-28 13:00:00 Outpatient Amada MONIQUE QASIM [facility] [id number] [facility] 2021-04-23 13:22:48 2021-04-23 14:46:34 Office Visit Nuria Naylor [facility] Building 1..840.114 350.1.13.10 4.2.7.2.686 [id number] [facility] 2021-04-23 13:20:00 2021-04-23 13:20:00 Outpatient NURIA MONTALVO [facility] [id number] [facility] 2021-04-23 00:00:00 2021-04-23 00:00:00 Orders Only Doctor Unassigned, [place] [facility] 1.840.114 350.1.13.10 4.2.7.2.686 [id number] [facility] 2021-04-22 11:20:00 2021-04-22 11:20:00 Outpatient NURIA MONTALVO [facility] [id number] [facility] 2021-04-15 11:20:00 2021-04-15 11:20:00 Outpatient NURIA MONTALVO [facility] [id number] [facility] 2021-04-03 00:00:00 2021-04-03 00:00:00 Patient Outreach Genny Vidal [facility] Building 1.840.114 350.1.13.10 4.2.7.2.686 [id number] [facility] 2021-04-02 10:11:30 2021-04-02 10:26:30 Greenhouse Manager Visit 2, [facility] Tere Clinton [facility] Building 1..840.114 350.1.13.10 4.2.7.2.686 [id number] [facility] 2021-04-02 10:00:00 2021-04-02 10:00:00 Outpatient ROSALINO SILVACY [facility] [id number] [facility] 2021-04-01 16:27:04 2021-04-01 16:42:04 Billing Encounter Only, [facility] Nuria Olivares [facility] 1.2.840.114 350.1.13.10 4.2.7.2.686 [id number] [facility] 2021-04-01 14:01:17 2021-04-01 15:11:44 Office Visit Nuria Naylor [facility] 1.2.840.114 350.1.13.10 4.2.7.2.686 [id number] [facility] 2021-04-01 13:50:00 2021-04-01 13:50:00 Outpatient R NURIA NAYLOR [facility] [id number] [facility] 2021-03-26 14:20:00 2021-03-26 14:20:00 Outpatient R NURIA NAYLOR [facility] [id number] [facility] 2021-03-23 13:20:00 2021-03-23 13:20:00 Outpatient R NURIA NAYLOR [facility] [id number] [facility] 2021-02-25 14:20:50 2021-02-25 14:51:05 Nurse Visit Nurse, [facility] Stephen Diallo [facility] 1.2.840.114 350.1.13.10 4.2.7.2.686 [id number] [facility] 2021-02-25 14:00:00 2021-02-25 14:00:00 Outpatient R [facility] [id number] [facility] 2021-02-23 14:30:00 2021-02-23 14:30:00 Outpatient R [facility] [id number] [facility] 2021-02-19 00:00:00 2021-02-19 00:00:00 Orders Only Doctor Unassigned, [place] [facility] 1.2.840.114 350.1.13.10 4.2.7.2.686 [id number] [facility] 2021-02-17 13:26:50 2021-02-17 14:14:48 Office Visit Nuria Naylor [facility] 1.2.840.114 350.1.13.10 4.2.7.2.686 [id number] [facility] 2021-02-17 13:20:00 2021-02-17 13:20:00 Outpatient R NURIA NAYLOR [facility] [id number] [facility] 2021-02-09 00:00:00 2021-02-09 00:00:00 Telephone Maria Eugenia Izquierdo [facility] 1.2.840.114 350.1.13.10 4.2.7.2.686 [id number] [facility] 2021-02-08 00:00:00 2021-02-08 00:00:00 Telephone Nuria Naylor [facility] 1.2.840.114 350.1.13.10 4.2.7.2.686 [id number] [facility] 2021-02-05 16:37:00 2021-02-05 17:41:00 Emergency Magy Lovelace [facility] 1.2.840.114 350.1.13.10 4.2.7.2.686 [id number] [facility] 2021-02-05 09:50:00 2021-02-05 09:50:00 Outpatient Amada NAYLOR NURIA [facility] [id number] [facility] 2021-02-02 15:00:46 2021-02-02 15:20:46 Urgent Care Gigi Ramos [facility] Office Building One ..114 350.1.13.10 4.2.7.2.686 [id number] [facility] 2021-02-02 15:20:00 2021-02-02 15:20:00 Outpatient CHRISTIANNE WESLEY [facility] [id number] [facility] 2021-01-12 11:20:00 2021-01-12 11:20:00 Outpatient MARIA EUGENIA JORGE [facility] [id number] [facility] 2021-01-09 00:00:00 2021-01-09 00:00:00 Telephone Lucille Ferguson [facility] 1.840.114 350.1.13.10 4.2.7.2.686 [id number] [facility] 2021-01-09 00:00:00 2021-01-09 00:00:00 Telephone Lucille Ferguson [facility] Surgical [facility] 1.840.114 350.1.13.10 4.2.7.2.686 [id number] [facility] 2021-01-09 00:00:00 2021-01-09 00:00:00 Letter (Out) Lucille Ferguson [facility] Office Building One ..114 350.1.13.10 4.2.7.2.686 [id number] [facility] 2021-01-09 00:00:00 2021-01-09 00:00:00 Letter (Out) Lucille Ferguson [facility] Office Building One 1.114 350.1.13.10 4.2.7.2.686 [id number] [facility] 2021-01-08 18:40:00 2021-01-08 18:40:00 Outpatient R BUTCH [facility] [id number] [facility] 2021-01-08 17:06:42 2021-01-08 18:02:39 [facility] .114 350.1.13.10 4.2.7.2.686 [id number] [facility] 2020-12-01 15:19:03 2020-12-01 15:38:31 Nurse Visit Nurse, [facility] Judy Perdomo [facility] Building 1..114 350.1.13.10 4.2.7.2.686 [id number] [facility] 2020-12-01 15:00:00 2020-12-01 15:00:00 Outpatient R [facility] [id number] [facility] 2020-11-26 10:30:00 2020-11-26 10:30:00 Outpatient R [facility] [id number] [facility] 2020-11-14 20:46:00 2020-11-15 00:27:00 Emergency Doyle Lo [facility] 1.0.114 350.1.13.10 4.2.7.2.686 [id number] [facility] 2020-10-29 00:00:00 2020-10-29 00:00:00 Ellen Simpson [facility] 1.0.114 350.1.13.10 4.2.7.2.686 [id number] [facility] 2020-09-03 15:12:21 2020-09-03 15:43:23 Nurse Visit Nurse, [facility] 1.2.840.114 350.1.13.10 4.2.7.2.686 [id number] [facility] 2020-09-03 15:00:00 2020-09-03 15:00:00 Outpatient R [facility] [id number] [facility] 2020-08-29 15:00:00 2020-08-29 15:00:00 Outpatient R [facility] [id number] [facility] 2020-08-12 00:00:00 2020-08-12 00:00:00 Telephone Nuria Naylor [facility] 1.2.840.114 350.1.13.10 4.2.7.2.686 [id number] [facility] 2020-07-01 16:17:39 2020-07-01 16:32:39 Greenhouse Manager Visit 2, [facility] Lab Nuria Naylor [facility] 1.2.840.114 350.1.13.10 4.2.7.2.686 [id number] [facility] 2020-07-01 15:23:31 2020-07-01 16:10:02 Office Visit Nuria Naylor [facility] 1.2.840.114 350.1.13.10 4.2.7.2.686 [id number] [facility] 2020-07-01 15:20:00 2020-07-01 15:20:00 Outpatient R NURIA NAYLOR [facility] [id number] [facility] 2020-07-01 00:00:00 2020-07-01 00:00:00 Letter (Out) Nuria Naylor [facility] 1.2.840.114 350.1.13.10 4.2.7.2.686 [id number] [facility] 2020-07-01 00:00:00 2020-07-01 00:00:00 Telephone Nuria Naylor [facility] 1.2.840.114 350.1.13.10 4.2.7.2.686 [id number] [facility] 2020-06-23 15:48:24 2020-06-23 16:01:54 Billing Encounter Only, Adc Pednevin Wall Nuria Naylor [facility] 1.2.840.114 350.1.13.10 4.2.7.2.686 [id number] [facility] 2020-06-23 15:02:13 2020-06-23 16:00:57 Office Visit Nuria Naylor [facility] 1.2.840.114 350.1.13.10 4.2.7.2.686 [id number] [facility] 2020-06-23 14:40:00 2020-06-23 14:40:00 Outpatient R NURIA NAYLOR [facility] [id number] [facility] 2020-06-03 15:45:00 2020-06-03 15:45:00 Outpatient R MARIA EUGENIA IZQUIERDO [facility] [id number] [facility] 2020-06-03 14:59:54 2020-06-03 15:14:54 Greenhouse Manager Visit Pob, [facility] 1.2.840.114 350.1.13.10 4.2.7.2.686 [id number] [facility] 2020-05-28 02:31:00 2020-05-28 02:31:00 Outpatient Wiliu_P [facility] [id number] [facility] 2020-05-27 14:49:23 2020-05-27 15:39:16 Office Visit Judy Perdomo [facility] [id number] [facility] 2020-05-27 15:00:00 2020-05-27 15:00:00 Outpatient R JUDY PERDOMO [facility] [id number] [facility] 2020-05-27 00:00:00 2020-05-27 00:00:00 Orders Only Doctor Unassigned, [place] [facility] 1..114 350.1.13.10 4.2.7.2.686 [id number] [facility] 2020-05-26 00:00:00 2020-05-26 00:00:00 Telephone Leobardo Tere [facility] 1..114 350.1.13.10 4.2.7.2.686 [id number] [facility] 2020-05-13 15:07:58 2020-05-13 15:35:37 Nurse Visit Nurse, [facility] Stephen Diallo [facility] 1.114 350.1.13.10 4.2.7.2.686 [id number] [facility] 2020-05-13 15:00:00 2020-05-13 15:00:00 Outpatient R [facility] [id number] [facility] 2020-05-13 00:00:00 2020-05-13 00:00:00 Orders Only Doctor Unassigned, [place] [facility] 1.114 350.1.13.10 4.2.7.2.686 [id number] [id number] [facility] 2020-05-13 00:00:00 2020-05-13 00:00:00 Telephone Visit, Adc Nurse [facility] 1.284.114 350.1.13.10 4.2.7.2.686 [id number] [facility] 2020-05-11 14:04:00 2020-05-11 16:19:00 Emergency Blanca Castillo [facility] 1.2840.114 350.1.13.10 4.2.7.2.686 [id number] [facility] 2020-05-11 00:00:00 2020-05-11 00:00:00 Orders Only Doctor Unassigned, [place] [facility] 1.2840.114 350.1.13.10 4.2.7.2.686 [id number] [facility] 2020-03-31 09:00:00 2020-03-31 09:00:00 Outpatient R [facility] [id number] [facility] 2020-03-28 15:00:00 2020-03-28 15:00:00 Outpatient R [facility] [id number] [facility] 2020-03-14 00:00:00 2020-03-14 00:00:00 Telephone Tere [place] [facility] 1..840.114 350.1.13.10 4.2.7.2.686 [id number] [facility] 2020-03-14 00:00:00 2020-03-14 00:00:00 Telephone Leobardo Tere [facility] 1.2.840.114 350.1.13.10 4.2.7.2.686 [id number] 2020-02-29 15:49:06 2020-02-29 17:16:31 Maria Eugenia Peralta [facility] 1.2.840.114 350.1.13.10 4.2.7.2.686 [id number] [facility] 2020-02-29 15:49:06 2020-02-29 17:16:31 Billing Encounter Maria Eugenia Izquierdo [facility] 1.2.840.114 350.1.13.10 4.2.7.2.686 [id number] 2020-02-29 14:22:59 2020-02-29 15:59:38 Office Visit Maria Eugenia Izquierdo [facility] 1.284.114 350.1.13.10 4.2.7.2.686 [id number] [facility] 2020-02-29 14:20:00 2020-02-29 14:20:00 [facility] [id number] 2020-02-08 14:20:00 2020-02-08 14:20:00 [facility] [id number] [facility] 2020-02-01 11:23:10 2020-02-01 11:43:10 [facility] 1.2.840.114 350.1.13.10 4.2.7.2.686 [id number] [facility] 2020-02-01 11:20:00 2020-02-01 11:20:00 [facility] [id number] [facility] 2019-12-26 14:50:48 2019-12-26 15:09:34 Nurse Visit Nurse, [facility] Carolee Adelia [facility] 1.2.840.114 350.1.13.10 4.2.7.2.686 [id number] [facility] 2019-12-26 14:30:00 2019-12-26 14:30:00 Outpatient R [facility] [id number] [facility] 2019-12-06 13:00:00 2019-12-06 13:00:00 Outpatient R SINDHU ROBBINS [facility] [id number] [facility] 2019-09-28 12:19:02 2019-11-07 16:21:26 Telemedici ne Visit Ellen Baxter [facility] 1.2.840.114 350.1.13.10 4.2.7.2.686 [id number] [facility] 2019-10-01 14:29:02 2019-10-01 14:49:02 Telemedici ne Visit Maria Eugenia Izquierdo [facility] 1.2.840.114 350.1.13.10 4.2.7.2.686 [id number] [facility] 2019-10-01 10:10:00 2019-10-01 10:10:00 Outpatient R MARIA EUGENIA IZQUIERDO [facility] [id number] [facility] 2019-09-28 13:00:00 2019-09-28 13:00:00 Outpatient R ELLEN BAXTER [facility] [id number] [facility] 2019-09-25 15:06:48 2019-09-25 15:21:48 Nurse Visit Nurse, [facility] 1.2.840.114 350.1.13.10 4.2.7.2.686 [id number] [facility] 2019-09-25 15:00:00 2019-09-25 15:00:00 Outpatient R [facility] [id number] [facility] 2019-09-24 15:30:00 2019-09-24 15:30:00 Outpatient R [facility] [id number] [facility] 2019-09-21 15:00:00 2019-09-21 15:00:00 Outpatient R [facility] [id number] [facility] 2019-09-14 15:30:00 2019-09-14 15:30:00 Outpatient R [facility] [id number] [facility] 2019-09-05 00:00:00 2019-09-05 00:00:00 Telephone [facility] 1.840.114 350.1.13.10 4.2.7.2.686 [id number] [facility] 2019-09-04 15:07:22 2019-09-04 16:20:14 Office Visit Rosendo [facility] [place] 1.2840.114 350.1.13.10 4.2.7.2.686 [id number] [facility] 2019-09-04 15:00:00 2019-09-04 15:00:00 Outpatient R ROSENDO [facility] [id number] [facility] 2019-09-04 00:00:00 2019-09-04 00:00:00 Letter (Out) Rosendo [facility] [place] 1.2840.114 350.1.13.10 4.2.7.2.686 [id number] [facility] 2019-09-04 00:00:00 2019-09-04 00:00:00 Orders Only Doctor Unassigned, [place] [facility] 1.2840.114 350.1.13.10 4.2.7.2.686 [id number] [facility] 2019-08-30 00:00:00 2019-08-30 00:00:00 Case Management Maria Eugenia [facility] 1.2840.114 350.1.13.10 4.2.7.2.686 [id number] [facility] 2019-08-29 10:54:40 2019-08-29 11:09:40 Greenhouse Manager Visit Pob, Adc Lab Maria Eugenia Machado [facility] 1.2.840.114 350.1.13.10 4.2.7.2.686 [id number] [facility] 2019-08-21 19:41:00 2019-08-21 22:05:00 Emergency Magy Lovelace [facility] 1.2.840.114 350.1.13.10 4.2.7.2.686 [id number] [facility] 2019-03-14 00:00:00 2019-03-14 00:00:00 Telephone Carolee Adelia [facility] 1.2840.114 350.1.13.10 4.2.7.2.686 [id number] [facility] 2019-03-08 11:35:41 2019-03-08 11:50:41 Greenhouse Manager Visit 2, Adc Lab Adelia Zarco [facility] 1.2.840.114 350.1.13.10 4.2.7.2.686 [id number] [facility] 2019-03-08 10:10:49 2019-03-08 11:17:52 Office Visit Adelia Zarco [facility] 1.2.840.114 350.1.13.10 4.2.7.2.686 [id number] [facility] 2019-03-08 00:00:00 2019-03-08 00:00:00 Orders Only Doctor Unassigned, [place] [facility] 1.2.840.114 350.1.13.10 4.2.7.2.686 [id number] [facility] 2018-09-29 00:00:00 2018-09-29 00:00:00 Marci Miguel MD: [address], [address], [place] [address] , Ph. [id number] [phone] [facility] Results Test Description Test Time Test Comments Results Result Co mments Source [facility] [id number] 23:05:55* Test Item Value Reference Range Interpretation Comme nts POCT Molecular Strep (test c ode = 41056-1) Negative Negative Lab Interpretation (test cod e = 18725-4) Normal [facility]2019-03-22 11:11:05* Test Item Value Reference Range Interpretation Comme nts Right (test code = Right) Type C Peak is on Left Left (test code = Left) Type C Peak is on Left [facility] Notes Date/Time Note Provider Source 2023-07-05 01:58:16 Pt given printed and verbal discharge instructions regarding left foot sprain, encouraged RICE, Discussed ibuprofen and to take with food to avoid GI distress, alternate with Tylenol to help with pain and/or fever Pt verbalized understanding of instructions,pt encouraged to follow up with pcp and or ortho Advised to seek medical attention for new/prolonged/worsening of symptoms, No adverse reaction to meds given in ER noted upon discharge PIV d'cd, dressing to site, catheter in tact. Awake, alert oriented, resp reg unlabored, skin w/d, pt leaving in no apparent distress, ING PROCESS LINE WORKER Christianne Sharpe RN [facility] 2023-07-04 23:37:39 Patient was walking outside around 3pm yesterday and tripped over object and fell on concrete. Complaining of left top of foot pain and right knee pain. No loc. No other injuries. Ambulatory into triage. 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 ING PROCESS LINE WORKER Phong Wisdom RN [facility]
[2024-04-28 13:04] LABS: Absolute Eosinophils 0.1 K/uL (0-0.5); Absolute Lymphocytes (CBC) 2.4 K/uL (0.7-4.9); Absolute Monocytes 0.5 K/uL (0.1-1.3); Basophils % 0.3 % (0-1.3); Eosinophils % 0.8 % (0-4.4); Hematocrit 44.3 % (36.0-45.0); Hemoglobin 15.2 g/dL (12.0-15.0); Lymphocytes % 24.1 % (15.3-44.8); MCH 33.3 pg (27.0-35.0); MCHC 34.2 g/dL (32.0-36.0); MCV 97.2 fL (80-100); MPV 8.6 fL (7.6-11.3); Neutrophils % 69.8 % (41.7-73.7); Platelets 321 thou/uL (152-406); RBC Red Blood Cell Count 4.55 M/uL (3.86-4.86); Red Cell Distribution Width 12.4 % (12.1-15.2)
[2024-04-28] MEDS ORDERED: NA CHLORIDE 0.9% 1,000 ML ONE (13:04)
[2024-04-28] MEDS ORDERED: ONDANSETRON 4 MG/2 ML VIAL ONE (13:04)
[2024-04-28] MEDS ORDERED: KETOROLAC 30 MG/ML INJ ONE (13:04)
[2024-04-28 13:05] LABS: Specific Gravity > 1.030 (1.005-1.030)
[2024-04-28 13:08] LABS: Specific Gravity > 1.030 (1.005-1.030); Sqamous Epithelial <5 /HPF (None Seen); Urine Bacteria <20 /HPF (<20); Urine Bilirubin NEGATIVE (Negative); Urine Blood 3+ (OVER) (Negative); Urine Clarity Clear (Clear); Urine Color Light-Orange (Yellow); Urine Culture Reflex Order REFLEXED; Urine Glucose 4+ (Over) (Negative); Urine Ketones 1+ (Negative); Urine Microscopic Reflex YN ORDER UMIC; Urine Mucus Slight /HPF (None Seen); Urine Nitrite NEGATIVE (Negative); Urine Protein 1+ (Negative); Urine RBC >50 /HPF (None Seen); Urine Urobilinogen Normal (Normal); Urine WBC 20-50 /HPF (<5)
[2024-04-28 13:20] LABS: Albumin 3.5 g/dL (3.4-5.0); Albumin/Globulin Ratio 0.9 (1.1-1.8); Anion Gap 9.8 mEq/L (5.0-15.0); Bilirubin Total 0.7 mg/dL (0.2-1.0); Globulin 3.9 g/dL (2.3-3.5); Potassium 3.8 mEq/L (3.5-5.1); Protein, Total 7.4 g/dL (6.4-8.2)
[2024-04-28] MEDS ORDERED: FENTANYL CITR 100 MCG/2 ML ONE (14:32)
--- NOTE | 2024-04-28 15:02 | RAD REPORT ---
EXAMINATION: CT ABDOMEN AND PELVIS WITH CONTRAST CLINICAL INDICATION: Abdominal pain. Right flank pain TECHNIQUE: CT abdomen and pelvis was performed, after the administration of 100 cc Isovue-300.. Sagit alyssa and coronal reconstructions were obtained. One or more of the following dose reduction techniques were used: Automated exposure control, adjustment of the mA and kV according to patient si ze, and iterative reconstruction. Unless otherwise specified, incidental findings do not require dedicated imaging follow-up. [id number]. Oral contrast was not given which limits evaluation of bowel and appendix. COMPARISON: none FINDINGS: Liver, spleen, pancreas, adrenals and kidneys appear unremarkable No evidence of diverticulitis. Normal appendix No adnexal mass Small umbilical hernia : IMPRESSION: No acute abnormality displayed
[2024-04-28] MEDS ORDERED: CEFTRIAXONE 1000 MG/VIAL ONE (15:42)
--- NOTE | 2024-04-28 15:42 | ER ---
Nurse's Notes [facility] Name: Leila Quevedo Age: 18 yrs Sex: Female : 2005 Arrival Date: 04/28/2024 Time: 12:26 Bed 18 Private MD: Diagnosis: UTI/ Urinary tract infection, site not specified;Type 2 diabetes mellitus with hyperglycemia Presentation: 04/28 12:33 Chief complaint: Patient states: lower back pain more on right side, pain started iw Tuesday , also has pain with urination , the pain is sending pain through my hips. Coronavirus screen: At this time, the client does not indicate any symptoms associated with coronavirus-19. Ebola Screen: No symptoms or risks identified at this time. Initial Sepsis Screen: Does the patient meet any 2 criteria? Does the patient have a suspected source of infection? No. Patient's initial sepsis screen is negative. Risk Assessment: Do you want to hurt yourself or someone else? Patient reports no desire to harm self or others. Onset of symptoms was April 27, 2024. 12:33 Method Of Arrival: Ambulatory iw 12:33 Acuity: MONSE 3 iw NUTRITION SPECIALIST: 12:36 LMP 04/27/2024, unknown iw Historical: - Allergies: 12:35 No Known Allergies; iw - Home Meds: 12:35 None [Active]; iw - PMHx: 12:35 None; iw - Immunization history:: Adult Immunizations not up to date. - Infectious Disease History:: Denies. - Social history:: Smoking status: Patient denies any tobacco usage or history of. Screenin:15 [facility] ED Fall Risk Assessment (Adult) History of falling in the last 3 months, mb9 including since admission No falls in past 3 months (0 pts) Confusion or Disorientation No (0 pts) Intoxicated or Sedated No (0 pts) Impaired Gait No (0 pts) Mobility Assist Device Used No (0 pt) Altered Elimination No (0 pt) Score/Fall Risk Level 0 - 2 = Low Risk Oriented to surroundings, Maintained a safe environment, Educated pt \T\ family on fall prevention, incl call for assistance when getting out of bed. Abuse screen: Denies threats or abuse. Nutritional screening: No deficits noted. Tuberculosis screening: No symptoms or risk factors identified. Assessment: 12:40 General: Appears in no apparent distress. uncomfortable, Behavior is calm, cooperative. rs5 Pain: Complains of pain in right low back Pain currently is 6 out of 10 on a pain scale. Quality of pain is described as aching, Is continuous. Neuro: Level of Consciousness is awake, alert, obeys commands, Oriented to person, place, time, situation. Cardiovascular: Patient's skin is warm and dry. Respiratory: Airway is patent Respiratory effort is even, unlabored, Respiratory pattern is regular, symmetrical. GI: Abdomen is round non-distended, Abd is soft and non tender X 4 quads. : No signs and/or symptoms were reported regarding the genitourinary system. EENT: No signs and/or symptoms were reported regarding the EENT system. Derm: Skin is intact, Skin is pink, warm \T\ dry. Musculoskeletal: Range of motion: intact in all extremities. 13:41 Reassessment: Patient and/or family updated on plan of care and expected duration. Pain rs5 level reassessed. Patient is alert, oriented x 3, equal unlabored respirations, skin warm/dry/pink. 15:01 Reassessment: Patient and/or family updated on plan of care and expected duration. Pain rs5 level reassessed. Patient is alert, oriented x 3, equal unlabored respirations, skin warm/dry/pink. 15:35 Reassessment: No changes from previously documented assessment. rs5 Vital Signs: 12:33 BP 154 / 101; Pulse 81; Resp 16; Pulse Ox 99% on R/A; Weight 111.13 kg; Height 5 ft. 1 iw in. ; Pain 6/10; 13:41 BP 124 / 81; Pulse 77; Resp 17; Pulse Ox 98% on R/A; rs5 12:33 Body Mass Index 46.29 (111.13 kg, 154.94 cm) iw 12:33 Pain Scale: Adult iw ED Course: 12:29 Patient arrived in ED. im 12:35 Triage completed. iw 12:35 Arm band placed on. iw 12:38 Lennie Reyes PA-C is PHCP. sb4 12:38 Vinnie Posey MD is Attending Physician. sb4 12:42 Isaac Olivarez, SARITA is Primary Nurse. rs5 12:58 CBC with Diff Sent. mb9 12:58 CMP Sent. mb9 12:58 Lipase Sent. mb9 12:59 Bed in low position. Call light in reach. Side rails up X 1. Provided Education on: mb9 press call light if needing anything. Client placed on continuous cardiac and pulse oximetry monitoring. NIBP monitoring applied. 12:59 Test, Urine Sent. mb9 12:59 Urinalysis w/ reflexes Sent. mb9 12:59 Initial lab(s) drawn, by ky, sent to lab. Urine collected: clean catch specimen, mb9 cloudy. Inserted saline lock: 20 gauge in right antecubital area, using aseptic technique. Blood collected. Flushed with 10 mL NS. 13:16 No provider procedures requiring assistance completed. mb9 14:39 CT Abd/Pelvis - IV Contrast Only In Process Unspecified. EDMS 15:50 IV discontinued, intact, bleeding controlled, No redness/swelling at site. Pressure rs5 dressing applied. Administered Medications: 13:11 Drug: NS 0.9% IV 1000 ml IV at 1 bolus Per protocol; to be given as a bolus over 60 rs5 minutes Route: IV; Rate: 1 bolus; Site: right antecubital; 14:20 Follow up: IV Status: Completed infusion; IV Intake: 1000ml rs5 13:12 Drug: TORadol - Ketorolac IVP 15 mg IVP once Route: IVP; Site: right antecubital; rs5 13:30 Follow up: Response: No adverse reaction rs5 13:12 Drug: Ondansetron IVP 4 mg IVP once; over 2 minutes Route: IVP; Site: right antecubital;rs5 13:30 Follow up: Response: No adverse reaction rs5 14:30 Drug: fentaNYL (PF) IVP 25 mcg IVP once Route: IVP; Site: right antecubital; rs5 15:01 Follow up: Response: No adverse reaction; Pain is decreased rs5 15:36 Drug: Rocephin IV 1 grams IV at calculated rate once; Given slow IV push per pharmacy rs5 instructions Route: IV; Rate: calculated rate; Site: left antecubital; 16:01 Follow up: Response: No adverse reaction rs5 19:30 Not Given (Patient Refused): hydrocodone-acetaminophen(7.5 mg-325 mg) 1 tabs PO once rs5 Medication: 13:16 VIS not applicable for this client. mb9 Intake: 14:20 IV: 1000ml; Total: 1000ml. rs5 Outcome: 15:41 Discharge ordered by MD. sb4 15:50 Discharged to home ambulatory, rs5 15:50 Condition: stable rs5 15:50 Discharge instructions given to patient, family, Instructed on discharge instructions, follow up and referral plans. medication usage, Demonstrated understanding of instructions, follow-up care, medications, Prescriptions given X 1, 15:55 Patient left the ED. rs5 Addendum: 05/01/2024 18:31 Addendum: Culture Results: Positive urine culture. Positive blood culture. No further l l1 action required. Other: make sure to follow-up with PCP. States she is felling better. Signatures: Dispatcher [employer] Shanae Mcdonnell RN RN iw Rodney Lugo RN RN ll1 Lennie Reyes, PA-C PA-C sb4 Yelena Ruiz RN RN mb9 Isaac Olivarez RN RN rs5 Dana Carlson Corrections: (The following items were deleted from the chart) 04/28 12:35 12:35 PMHx: Diabetes - NIDDM; [facility]
--- NOTE | 2024-04-28 15:42 | EDPHYS ---
Physician Documentation [facility] Name: Leila Quevedo Age: 18 yrs Sex: Female : 2005 Arrival Date: 04/28/2024 Time: 12:26 Bed 18 Private MD: ED Physician Vinnie Posey HPI: 04/28 12:49 This 18 yrs old Female presents to ER via Ambulatory with complaints of Low sb4 Back Pain, Urinary Problem. 12:50 Patient reports right low back pain and pain with urination x 1 day. She states that sb4 she has had symptoms intermittently for a few weeks but they became much worse last night. She denies any fever or vomiting. Does endorse some nausea. 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 - Infectious Disease History:: Denies. - Social history:: Smoking status: Patient denies any tobacco usage or history of. ROS: 12:50 Constitutional: Negative for fever, chills, and weight loss, sb4 12:50 Abdomen/GI: Positive for nausea, 12:50 Back: Positive for pain at rest, flank pain, on the right, radiated pain, 12:50 All other systems are negative, 12:50 : Positive for burning with urination, sb4 Exam: 12:51 Head/Face: Normocephalic, atraumatic. Eyes: Extra-ocular motions intact. Periorbital sb4 areas with no swelling, redness, or edema. ENT: Mucous membranes moist. Cardiovascular: Regular rate and rhythm with a normal S1 and S2. Respiratory: No increased work of breathing, no retractions or nasal flaring. Skin: Warm, dry with normal turgor. Normal color with no rashes, no lesions, and no evidence of cellulitis. 12:51 Constitutional: The patient appears alert, awake, obese, in obvious pain, uncomfortable, 12:51 Abdomen/GI: Inspection: abdomen appears normal, Bowel sounds: normal, Palpation: soft, mild abdominal tenderness, in the suprapubic area, 12:51 Back: pain, that is moderate, of the right low back, CVA tenderness, is absent, Vital Signs: 12:33 BP 154 / 101; Pulse 81; Resp 16; Pulse Ox 99% on R/A; Weight 111.13 kg; Height 5 ft. 1 iw in. ; Pain 6/10; 13:41 BP 124 / 81; Pulse 77; Resp 17; Pulse Ox 98% on R/A; rs5 12:33 Body Mass Index 46.29 (111.13 kg, 154.94 cm) iw 12:33 Pain Scale: Adult iw MDM: 12:38 Medical Screening Exam initiated sb4 12:54 Differential diagnosis: strain, sciatica, Herniated disc UTI. sb4 15:40 Data reviewed: vital signs, nurses notes, lab test result(s), radiologic studies, and sb4 as a result, I will discharge patient. Historians other than the Patient: Parent: mother. Care significantly affected by the following chronic conditions: Diabetes, Obesity. Counseling: I had a detailed discussion with the patient and/or guardian regarding the historical points, exam findings, and any diagnostic results supporting the discharge/admit diagnosis, lab results, radiology results, the need for outpatient follow up, for definitive care, to return to the emergency department if symptoms worsen or persist or if there are any questions or concerns that arise at home. 04/28 12:48 Order name: CBC with Diff; Complete Time: 13:06 sb4 04/28 12:48 Order name: CMP; Complete Time: 13:21 sb4 04/28 12:48 Order name: Lipase; Complete Time: 13:21 sb4 04/28 12:48 Order name: Test, Urine; Complete Time: 13:06 sb4 04/28 12:48 Order name: Urinalysis w/ reflexes; Complete Time: 13:10 sb4 04/28 13:12 Order name: Urine Culture EDMS 04/28 12:48 Order name: CT Abd/Pelvis - IV Contrast Only; Complete Time: 15:08 sb4 04/28 12:48 Order name: IV Saline Lock; Complete Time: 12:58 sb4 04/28 12:48 Order name: Labs collected and sent; Complete Time: 12:58 sb4 Administered Medications: 13:11 Drug: NS 0.9% IV 1000 ml IV at 1 bolus Per protocol; to be given as a bolus over 60 rs5 minutes Route: IV; Rate: 1 bolus; Site: right antecubital; 14:20 Follow up: IV Status: Completed infusion; IV Intake: 1000ml rs5 13:12 Drug: TORadol - Ketorolac IVP 15 mg IVP once Route: IVP; Site: right antecubital; rs5 13:30 Follow up: Response: No adverse reaction rs5 13:12 Drug: Ondansetron IVP 4 mg IVP once; over 2 minutes Route: IVP; Site: right antecubital;rs5 13:30 Follow up: Response: No adverse reaction rs5 14:30 Drug: fentaNYL (PF) IVP 25 mcg IVP once Route: IVP; Site: right antecubital; rs5 15:01 Follow up: Response: No adverse reaction; Pain is decreased rs5 15:36 Drug: Rocephin IV 1 grams IV at calculated rate once; Given slow IV push per pharmacy rs5 instructions Route: IV; Rate: calculated rate; Site: left antecubital; 16:01 Follow up: Response: No adverse reaction rs5 19:30 Not Given (Patient Refused): hydrocodone-acetaminophen(7.5 mg-325 mg) 1 tabs PO once rs5 Disposition Summary: 04/28/24 15:41 Discharge Ordered Notes: Location: Home sb4 Problem: new sb4 Symptoms: have improved sb4 Condition: Stable sb4 Diagnosis - UTI/ Urinary tract infection, site not specified sb4 - Type 2 diabetes mellitus with hyperglycemia sb4 Followup: sb4 - With: Private Physician - When: 2 - 3 days - Reason: Recheck today's complaints, Continuance of care, Re-evaluation by your physician Discharge Instructions: - Discharge Summary Sheet sb4 - Urinary Tract Infection, Adult, [id number] sb4 - Type 2 Diabetes Mellitus, Self-Care, Adult, [id number] sb4 Forms: - Antibiotic Education sb4 - Patient Portal Instructions sb4 - Leadership Thank You Letter sb4 - Work release form rs5 Prescriptions: - Amoxicillin 875 mg Oral Tablet - take 1 tablet ORAL route every 12 hours for 10 days; 20 tablet; Refills: 0, sb4 Product Selection Permitted - Metformin 500 mg Oral Tablet - take 1 tablet ORAL route once daily for 7 days Then take 1 tablet with morning sb4 meals AND evening meals; 21 tablet; Refills: 0, Product Selection Permitted Signatures: Dispatcher [employer] Shanae Mcdonnell, SARITA RN iw Lennie Reyes PA-C PAPaige sb4 Isaac Olivarez RN RN rs5 Corrections: (The following items were deleted from the chart) 12:35 12:35 PMHx: Diabetes - NIDDM; [facility] 12:51 12:50 Constitutional: Negative for fever, chills, and weight loss, sb4 sb4
[2024-04-28 18:42] VITALS: BP 124/81; O2SAT 98
== END 2024-04-28 15:55 | disposition home or self-care (01) ==
LOC: ER 12:26
DX: N39.0 Urinary tract infection, site not specified (principal); E11.65 Type 2 diabetes mellitus with hyperglycemia
CPT/HCPCS: 36415; 74177; 80053; 81001; 81025; 83690; 85025; 87077; 87086; 87088; 87186; 99284; J0696; J2405; J3010; J7030; Q9967